=== PATIENT | male | born 1970 | race American Indian/Alaskan Native ===

== ENCOUNTER 2021-05-02 01:15 | Inpatient (IN) | payer MEDICARE ==
--- NOTE | 2021-05-02 07:39 | History and Physical Report ---
GP History & Physical - History of Present Illness Date of admission: 05/02/21 Date of Examination: 05/02/21 Reason for Admission: Danger to self, Failure of Outpatient Treatment Chief Complaint: suicidal attempt History of Present Illness: Jcarlos Breen is a 50 year old male with a history of depression and paranoid schizophrenia who was admitted on 1012 from [place], [place] for suicidal ideation and attempt via overdosing on pills. The patient was seen resting in bed, he was calm and cooperative. The patient reports that he stays depressed due to his comorbid health issues. The patient reports having intermittent issues with panic attacks and claustrophobic. He endorses auditory/visual hallucinations stating " voices saying give up because you're not going to get better, do what you have to do." The patient also states that " when my HIV kick in, I start itching I see bees and I loose my mind." The patient denies having any current suicidal /homicidal ideation. PAST PSYCHIATRIC HISTORY: Diagnoses: Depression, paranoid schizophrenia Suicide attempts or Self-harm behavior: Yes, via OD on pills Prior psychiatric hospitalizations: Yes Substance Abuse history: Denies Previous psychiatric medications tried: Xanax, Effexor, Vistaril Outpatient treatment: Yes- PAST MEDICAL HISTORY: Chronic back pain, HIV/AIDS, HTN, COPD, Gerd, DM, HEP A & Hep C, Gastritis, CHF Family Psychiatric History: None reported or documented SOCIAL HISTORY Marital Status:Single Living Arrangements: unknown Employment Status: Disabled Access to guns/weapons: Denies Education: 9th grade History of Abuse:Denies Legal History: Denies REVIEW OF SYSTEMS Constitutional: Negative for weight loss ENT: Negative for stridor Respiratory: Negative for cough or hemoptysis All other systems reviewed and are negative MENTAL STATUS EXAMINATION General Appearance and Behavior: Age appropriate, good hygiene, wearing appropriate clothes. Cooperation: Cooperative, calm Psychomotor Behavior: Psychomotor normal Mood: "ok" Affect and affective range: congruent with stated mood, tearful Thought Process: Goal directed Thought Content: Not suicidal Speech: Normal volume, Regular rate and rhythm, Suicidal Ideation: Denies Homicidal Ideation: Denies Hallucinations: Yes, Auditory and visual Delusions: None Impulse Control: Questionable Insight and Judgment: Limited insight, fair judgment Memory: unimpaired Attention: Distractible Orientation: alert and oriented Assessment and Plan (1) Paranoid Schizophrenia disorder Treatment Plan Patient admitted for inpatient psychiatric evaluation, medication adjustment and close monitoring The patient's behavior, mood, sleep and appetite will be closely monitored. Patient enrolled in individual and group therapeutic sessions and encouraged to attend. Patient provided with a safe and structured environment. Patient's physical health needs will be addressed by the Hospitalist. Hospitalist Consulted Labs including CBC, CMP, Lipid profile and Hemoglobin A1C levels ordered for baseline reference Social Assessment will be completed and the Post Closer will work with patient and family to ensure a suitable and safe disposition Medication adjustment will be made as clinically indicated Start Ativan 2mg IM Q 4 hours PRN for agitation Continue home medications Usual Wellness Jehovah'S Witness/Preservation: - Start Trazodone 50 mg po QHS & 50 mg po QHS PRN between 10 PM & 2 AM for insomnia - Start Melatonin 5 mg po QHS to promote circadian rhythm The patient agreed on the treatment plan, understood the risk, benefit, alternative treatment, potential consequence of no treatment, and gave informed consent. Estimated days: 6 Post hospital care: primary care provider, psychiatric provider Case staffed with Dr. Kelley Legal Status: Voluntary Reaction to Hospitalization: Accepting Medications and Allergies Medications and Allergies Allergies Allergy/AdvReac Type Severity Reaction Status Date / Time codeine AdvReac Unknown Verified 04/09/16 10:34 Home Medications Medication Instructions Recorded Confirmed Last Taken Type Aldactone 25 mg PO BID 05/02/21 05/02/21 Unknown History Bictegrav/Emtricit/Tenofov Ala 1 tab PO DAILY 05/02/21 05/02/21 Unknown History [Biktarvy 50-200-25 mg (Nf)] Losartan [Cozaar] 50 mg PO DAILY 05/02/21 05/02/21 Unknown History Oxycodone HCl/Acetaminophen 1 each PO Q6HR PRN 05/02/21 05/02/21 05/01/21 23:17 History [Percocet 10/325 mg] Pantoprazole [Protonix TAB] 40 mg PO QDAY 05/02/21 05/02/21 Unknown History Venlafaxine HCl [Effexor Xr] 150 mg PO DAILY 05/02/21 05/02/21 Unknown History metFORMIN [Glucophage] 500 mg PO BID 05/02/21 05/02/21 Unknown History Physician Certification - Certification Statement Physician Certification Statement: This is an acknowledgement statement that JCARLOS BREEN III is a 50 year old M who requires inpatient psychiatric admission for treatment which could reasonably be expected to improve the patient's condition for Estimated period of time patient will need to remain in the hospital: [ ] Plan for post-hospital care: [ ]
[2021-05-02] MEDS ORDERED: LORazepam 2 MG/ML VIAL IV PRN (08:30)
[2021-05-02] MEDS ORDERED: BUDESONIDE 0.25 MG/2 ML NEBU IH SCH (08:45)
[2021-05-02] MEDS ORDERED: BUDESONIDE 0.5 MG, ARFORMOTEROL NEBU 15 MCG IH SCH (09:00)
[2021-05-02] MEDS ORDERED: oxyCODONE /ACETAMINOPHEN 5-325MG TAB PO PRN (10:00)
[2021-05-02] MEDS ORDERED: NON-FORMULARY EACH (Bictegrav/Emtricit/Tenofov Ala 1 EACH Tablet) PO SCH (10:00)
[2021-05-02] MEDS ORDERED: ALDACTONE PO SCH (10:00)
[2021-05-02] MEDS ORDERED: NON-FORMULARY EACH (Venlafaxine Hcl [Effexor Xr] 150 MG Cap.Er.24h) PO SCH (10:00)
[2021-05-02] MEDS: VENLAFAXINE XR 75 MG CAP PO SCH (10:43)
[2021-05-02] MEDS: metFORMIN 500 MG TAB PO SCH ×2 (10:47→17:45)
[2021-05-02] MEDS: PANTOPRAZOLE 40 MG TAB PO SCH (10:47)
[2021-05-02] MEDS ORDERED: NON-FORMULARY EACH (Oxycodone Hcl/Acetaminophen [Percocet 10/325 Mg] 1 EACH Tablet) PO PRN (10:54)
[2021-05-02] MEDS: LOSARTAN 50 MG TAB PO SCH (10:54)
[2021-05-02] MEDS: SPIRONOLACTONE 25 MG TAB PO SCH ×2 (10:54→21:17)
[2021-05-02 12:19] LABS: Alanine Aminotransferase 21 units/L (7-56); Albumin 3.9 g/dL (3.9-5); BUN/Creatinine Ratio 10; Blood Urea Nitrogen 9 mg/dL (9-20); Chol/HDL Ratio 6.47 %; HDL Cholesterol 40 mg/dL (40-59); Hemolysis Index 10; LDL Cholesterol,Direct 197 mg/dL (50-130)
[2021-05-02] MEDS: BICTEGRAV/EMTRICIT/TENOFOV ALA (NF) TAB PO SCH (12:32)
[2021-05-02 12:38] LABS: Hematocrit 38.3 % (35.5-45.6); Hemoglobin 12.8 gm/dl (11.8-15.2); Lymphocytes # (Auto) 1.9 K/mm3 (1.2-5.4); Lymphocytes % (Auto) 14.2 % (13.4-35.0); Mean Corpuscular HGB Conc 34 % (32-34); Mean Corpuscular Volume 86 fl (84-94); Monocytes # (Auto) 1.2 K/mm3 (0.0-0.8); Monocytes % (Auto) 8.9 % (0.0-7.3); Platelet Count 251 K/mm3 (140-440); Red Blood Count 4.44 M/mm3 (3.65-5.03); Red Cell Distribution Width 15.9 % (13.2-15.2)
[2021-05-02] MEDS: BUDESONIDE 0.5 MG/2 ML NEBU IH SCH (13:42)
[2021-05-02] MEDS: ARFORMOTEROL 15 MCG/2 ML NEBU IH SCH (13:43)
[2021-05-02 16:22] LABS: Hepatitis C Virus Antibody Non-Reactive (NonReactive)
[2021-05-02 16:27] LABS: Hepatitis B Surface Antigen Nonreactive (Negative)
[2021-05-02] MEDS: oxyCODONE 5 MG TAB PO PRN (18:28)
[2021-05-02] MEDS: oxyCODONE /ACETAMINOPHEN 5-325MG TAB PO PRN (18:28)
[2021-05-02] MEDS: traZODone 50 MG TAB PO SCH (21:17)
[2021-05-03] MEDS: oxyCODONE /ACETAMINOPHEN 5-325MG TAB PO PRN ×4 (01:04→23:44)
[2021-05-03] MEDS: oxyCODONE 5 MG TAB PO PRN ×4 (01:21→22:01)
--- NOTE | 2021-05-03 08:12 | Consultation ---
History of Present Illness - Reason for Consult Consult date: 05/03/21 Medical consult Requesting physician: BENJI MIXON - History of Present Illness 50-year-old male patient was admitted to [facility] psych unit with history of suicidal attempt, patient has multiple medical problems Hospitalist services were consulted for medical consult and medical management Medications and Allergies Allergies Allergy/AdvReac Type Severity Reaction Status Date / Time codeine AdvReac Unknown Verified 04/09/16 10:34 Home Medications Medication Instructions Recorded Confirmed Last Taken Type Aldactone 25 mg PO BID 05/02/21 05/02/21 Unknown History Bictegrav/Emtricit/Tenofov Ala 1 tab PO DAILY 05/02/21 05/02/21 Unknown History [Biktarvy 50-200-25 mg (Nf)] Losartan [Cozaar] 50 mg PO DAILY 05/02/21 05/02/21 Unknown History Oxycodone HCl/Acetaminophen 1 each PO Q6HR PRN 05/02/21 05/02/21 05/01/21 23:17 History [Percocet 10/325 mg] Pantoprazole [Protonix TAB] 40 mg PO QDAY 05/02/21 05/02/21 Unknown History Venlafaxine HCl [Effexor Xr] 150 mg PO DAILY 05/02/21 05/02/21 Unknown History metFORMIN [Glucophage] 500 mg PO BID 05/02/21 05/02/21 Unknown History Active Meds: Active Medications Arformoterol Tartrate (Arformoterol 15 Mcg/2 Ml Nebu) 15 mcg IH Q12HRT [facility] Last Admin: 05/02/21 13:43 Dose: 15 mcg Documented by: Budesonide (Budesonide 0.5 Mg/2 Ml Nebu) 0.5 mg IH Q12HRT [facility] Last Admin: 05/02/21 13:42 Dose: 0.5 mg Documented by: Hydroxyzine Pamoate (Hydroxyzine Pamoate 50 Mg Cap) 50 mg PO Q6H PRN PRN Reason: Anxiety Last Admin: 05/02/21 18:46 Dose: 50 mg Documented by: Lorazepam (Lorazepam 2 Mg/Ml Vial) 2 mg IV Q4H PRN PRN Reason: Agitation Losartan Potassium (Losartan 50 Mg Tab) 50 mg PO DAILY [facility] Last Admin: 05/02/21 10:54 Dose: 50 mg Documented by: Metformin HCl (Metformin 500 Mg Tab) 500 mg PO BIDDIAB [facility] Last Admin: 05/02/21 17:45 Dose: 500 mg Documented by: Oxycodone HCl (Oxycodone 5 Mg Tab) 5 mg PO Q6H PRN PRN Reason: Pain, Moderate (4-6) Last Admin: 05/03/21 01:21 Dose: 5 mg Documented by: Oxycodone/Acetaminophen (Oxycodone /Acetaminophen 5-325mg Tab) 1 tab PO Q6H PRN PRN Reason: Pain, Moderate (4-6) Last Admin: 05/03/21 01:04 Dose: 1 tab Documented by: Pantoprazole Sodium (Pantoprazole 40 Mg Tab) 40 mg PO QDAC [facility] Last Admin: 05/02/21 10:47 Dose: 40 mg Documented by: Spironolactone (Spironolactone 25 Mg Tab) 25 mg PO BID [facility] Last Admin: 05/02/21 21:17 Dose: 25 mg Documented by: Trazodone HCl (Trazodone 50 Mg Tab) 50 mg PO QHS [facility] Last Admin: 05/02/21 21:17 Dose: 50 mg Documented by: Venlafaxine HCl (Venlafaxine Xr 75 Mg Cap) 150 mg PO QDAY [facility] Last Admin: 05/02/21 10:43 Dose: 150 mg Documented by: Exam - Constitutional Vitals: Temp Pulse Resp BP Pulse Ox 98.2 F 76 18 138/73 100 05/02/21 20:15 05/02/21 21:17 05/03/21 01:21 05/02/21 21:17 05/02/21 20:15 Results - Labs CBC & Chem 7: 05/02/21 10:54 05/02/21 10:54 Labs: Abnormal lab results 05/02/21 05/02/21 05/02/21 Range/Units 10:54 10:54 10:54 WBC 13.0 H (4.5-11.0) K/mm3 RDW 15.9 H (13.2-15.2) % [place] % (Auto) 8.9 H (0.0-7.3) % [place] # (Auto) 1.2 H (0.0-0.8) K/mm3 Seg Neutrophils % 76.9 H (40.0-70.0) % Seg Neutrophils # 10.0 H (1.8-7.7) K/mm3 Carbon Dioxide 20 L (22-30) mmol/L Glucose 321 H (75-100) mg/dL POC Glucose (70-105) mg/dL Hemoglobin A1c 6.8 H (4-6) % Cholesterol 259 H (50-199) mg/dL LDL Cholesterol Direct 197 H (50-130) mg/dL TSH (0.270-4.200) mlU/mL 05/02/21 05/02/21 05/02/21 Range/Units 10:54 16:52 19:57 WBC (4.5-11.0) K/mm3 RDW (13.2-15.2) % [place] % (Auto) (0.0-7.3) % [place] # (Auto) (0.0-0.8) K/mm3 Seg Neutrophils % (40.0-70.0) % Seg Neutrophils # (1.8-7.7) K/mm3 Carbon Dioxide (22-30) mmol/L Glucose (75-100) mg/dL POC Glucose 223 H 267 H (70-105) mg/dL Hemoglobin A1c (4-6) % Cholesterol (50-199) mg/dL LDL Cholesterol Direct (50-130) mg/dL TSH 0.246 L (0.270-4.200) mlU/mL 05/03/21 Range/Units 06:03 WBC (4.5-11.0) K/mm3 RDW (13.2-15.2) % [place] % (Auto) (0.0-7.3) % [place] # (Auto) (0.0-0.8) K/mm3 Seg Neutrophils % (40.0-70.0) % Seg Neutrophils # (1.8-7.7) K/mm3 Carbon Dioxide (22-30) mmol/L Glucose (75-100) mg/dL POC Glucose 137 H (70-105) mg/dL Hemoglobin A1c (4-6) % Cholesterol (50-199) mg/dL LDL Cholesterol Direct (50-130) mg/dL TSH (0.270-4.200) mlU/mL
--- NOTE | 2021-05-03 08:14 | Consultation ---
History of Present Illness - Reason for Consult Consult date: 05/02/21 Medical management Requesting physician: BENJI MIXON - History of Present Illness History of Present Illness: Jcarlos Mohr is a 50 year old male with a history of depression and paranoid schizophrenia who was admitted on 1012 from [place], [place] for suicidal ideation and attempt via overdosing on pills. The patient was seen resting in bed, he was calm and cooperative. The patient reports that he stays depressed due to his comorbid health issues. The patient reports having intermittent issues with panic attacks and claustrophobic. He endorses auditory/visual hallucinations stating " voices saying give up because you're not going to get better, do what you have to do." The patient also states that " when my HIV kick in, I start itching I see bees and I loose my mind." The patient denies having any current suicidal /homicidal ideation. PAST MEDICAL HISTORY: Chronic back pain, HIV/AIDS, HTN, COPD, Gerd, DM, Hep C, Gastritis, CHF PAST PSYCHIATRIC HISTORY: Diagnoses: Depression, paranoid schizophrenia Suicide attempts or Self-harm behavior: Yes, via OD on pills Prior psychiatric hospitalizations: Yes Substance Abuse history: Denies Previous psychiatric medications tried: Xanax, Effexor, Vistaril Outpatient treatment: Yes- Family Psychiatric History: None reported or documented SOCIAL HISTORY Marital Status:Single Living Arrangements: unknown Employment Status: Disabled Access to guns/weapons: Denies Education: 9th grade History of Abuse:Denies Legal History: Denies REVIEW OF SYSTEMS Constitutional: Negative for weight loss ENT: Negative for stridor Respiratory: Negative for cough or hemoptysis All other systems reviewed and are negative Medications and Allergies Allergies Allergy/AdvReac Type Severity Reaction Status Date / Time codeine AdvReac Unknown Verified 04/09/16 10:34 Home Medications Medication Instructions Recorded Confirmed Last Taken Type Aldactone 25 mg PO BID 05/02/21 05/02/21 Unknown History Bictegrav/Emtricit/Tenofov Ala 1 tab PO DAILY 05/02/21 05/02/21 Unknown History [Biktarvy 50-200-25 mg (Nf)] Losartan [Cozaar] 50 mg PO DAILY 05/02/21 05/02/21 Unknown History Oxycodone HCl/Acetaminophen 1 each PO Q6HR PRN 05/02/21 05/02/21 05/01/21 23:17 History [Percocet 10/325 mg] Pantoprazole [Protonix TAB] 40 mg PO QDAY 05/02/21 05/02/21 Unknown History Venlafaxine HCl [Effexor Xr] 150 mg PO DAILY 05/02/21 05/02/21 Unknown History metFORMIN [Glucophage] 500 mg PO BID 05/02/21 05/02/21 Unknown History Active Meds: Active Medications Arformoterol Tartrate (Arformoterol 15 Mcg/2 Ml Nebu) 15 mcg IH Q12HRT [facility] Last Admin: 05/02/21 13:43 Dose: 15 mcg Documented by: Budesonide (Budesonide 0.5 Mg/2 Ml Nebu) 0.5 mg IH Q12HRT [facility] Last Admin: 05/02/21 13:42 Dose: 0.5 mg Documented by: Hydroxyzine Pamoate (Hydroxyzine Pamoate 50 Mg Cap) 50 mg PO Q6H PRN PRN Reason: Anxiety Last Admin: 05/02/21 18:46 Dose: 50 mg Documented by: Lorazepam (Lorazepam 2 Mg/Ml Vial) 2 mg IV Q4H PRN PRN Reason: Agitation Losartan Potassium (Losartan 50 Mg Tab) 50 mg PO DAILY [facility] Last Admin: 05/02/21 10:54 Dose: 50 mg Documented by: Metformin HCl (Metformin 500 Mg Tab) 500 mg PO BIDDIAB [facility] Last Admin: 05/02/21 17:45 Dose: 500 mg Documented by: Oxycodone HCl (Oxycodone 5 Mg Tab) 5 mg PO Q6H PRN PRN Reason: Pain, Moderate (4-6) Last Admin: 05/03/21 01:21 Dose: 5 mg Documented by: Oxycodone/Acetaminophen (Oxycodone /Acetaminophen 5-325mg Tab) 1 tab PO Q6H PRN PRN Reason: Pain, Moderate (4-6) Last Admin: 05/03/21 01:04 Dose: 1 tab Documented by: Pantoprazole Sodium (Pantoprazole 40 Mg Tab) 40 mg PO QDAC [facility] Last Admin: 05/02/21 10:47 Dose: 40 mg Documented by: Spironolactone (Spironolactone 25 Mg Tab) 25 mg PO BID [facility] Last Admin: 05/02/21 21:17 Dose: 25 mg Documented by: Trazodone HCl (Trazodone 50 Mg Tab) 50 mg PO QHS [facility] Last Admin: 05/02/21 21:17 Dose: 50 mg Documented by: Venlafaxine HCl (Venlafaxine Xr 75 Mg Cap) 150 mg PO QDAY [facility] Last Admin: 05/02/21 10:43 Dose: 150 mg Documented by: Review of Systems All systems: negative Exam - Constitutional Vitals: Temp Pulse Resp BP Pulse Ox 98.2 F 76 18 138/73 100 05/02/21 20:15 05/02/21 21:17 05/03/21 01:21 05/02/21 21:17 05/02/21 20:15 General appearance: Present: no acute distress, well-nourished - EENT Eyes: Present: PERRL ENT: hearing intact, clear oral mucosa - Neck Neck: Present: supple, normal ROM - Respiratory Respiratory effort: normal Respiratory: bilateral: CTA - Cardiovascular Heart rate: 78 Rhythm: regular Heart Sounds: Present: S1 & S2. Absent: rub, click - Extremities Extremities: pulses symmetrical, No edema Peripheral Pulses: within normal limits - Abdominal General gastrointestinal: Present: soft, non-tender, non-distended, normal bowel sounds Male genitourinary: Present: normal - Integumentary Integumentary: Present: clear, warm, dry - Musculoskeletal Musculoskeletal: gait normal, strength equal bilaterally - Psychiatric Psychiatric: appropriate mood/affect, intact judgment & insight - Neurologic Neurologic: CNII-XII intact, moves all extremities Results - Labs CBC & Chem 7: 05/02/21 10:54 05/02/21 10:54 Labs: Abnormal lab results 05/02/21 05/02/21 05/02/21 Range/Units 10:54 10:54 10:54 WBC 13.0 H (4.5-11.0) K/mm3 RDW 15.9 H (13.2-15.2) % [place] % (Auto) 8.9 H (0.0-7.3) % [place] # (Auto) 1.2 H (0.0-0.8) K/mm3 Seg Neutrophils % 76.9 H (40.0-70.0) % Seg Neutrophils # 10.0 H (1.8-7.7) K/mm3 Carbon Dioxide 20 L (22-30) mmol/L Glucose 321 H (75-100) mg/dL POC Glucose (70-105) mg/dL Hemoglobin A1c 6.8 H (4-6) % Cholesterol 259 H (50-199) mg/dL LDL Cholesterol Direct 197 H (50-130) mg/dL TSH (0.270-4.200) mlU/mL 05/02/21 05/02/21 05/02/21 Range/Units 10:54 16:52 19:57 WBC (4.5-11.0) K/mm3 RDW (13.2-15.2) % [place] % (Auto) (0.0-7.3) % [place] # (Auto) (0.0-0.8) K/mm3 Seg Neutrophils % (40.0-70.0) % Seg Neutrophils # (1.8-7.7) K/mm3 Carbon Dioxide (22-30) mmol/L Glucose (75-100) mg/dL POC Glucose 223 H 267 H (70-105) mg/dL Hemoglobin A1c (4-6) % Cholesterol (50-199) mg/dL LDL Cholesterol Direct (50-130) mg/dL TSH 0.246 L (0.270-4.200) mlU/mL 05/03/21 Range/Units 06:03 WBC (4.5-11.0) K/mm3 RDW (13.2-15.2) % [place] % (Auto) (0.0-7.3) % [place] # (Auto) (0.0-0.8) K/mm3 Seg Neutrophils % (40.0-70.0) % Seg Neutrophils # (1.8-7.7) K/mm3 Carbon Dioxide (22-30) mmol/L Glucose (75-100) mg/dL POC Glucose 137 H (70-105) mg/dL Hemoglobin A1c (4-6) % Cholesterol (50-199) mg/dL LDL Cholesterol Direct (50-130) mg/dL TSH (0.270-4.200) mlU/mL Assessment and Plan - Patient Problems (1) HTN (hypertension) Current Visit: Yes Status: Chronic Qualifiers: Hypertension type: primary hypertension Qualified Code(s): I10 - Essential (primary) hypertension Plan to address problem: Continue antihypertensives and adjust medications (2) T2DM (type 2 diabetes mellitus) Current Visit: Yes Status: Chronic Qualifiers: Diabetes mellitus roasterman insulin use: without roasterman use Plan to address problem: Continue Metformin and coverage Hemoglobin A1c is reasonable (3) HIV (human immunodeficiency virus infection) Current Visit: Yes Status: Chronic Qualifiers: HIV symptom status: unspecified Qualified Code(s): B20 - Human immunodeficiency virus [HIV] disease Plan to address problem: Continue antiretrovirals (4) GERD (gastroesophageal reflux disease) Current Visit: Yes Status: Chronic Qualifiers: Esophagitis presence: without esophagitis Qualified Code(s): K21.9 - Gastro-esophageal reflux disease without esophagitis Plan to address problem: Continue Protonix (5) Low back pain Current Visit: Yes Status: Chronic Qualifiers: Chronicity: chronic Plan to address problem: Tramadol 50 mg twice a day as needed (6) COPD (chronic obstructive pulmonary disease) Current Visit: Yes Status: Chronic Qualifiers: COPD type: chronic bronchitis Plan to address problem: Albuterol MDI as needed (7) DVT prophylaxis Current Visit: Yes Status: Acute Plan to address problem: On heparin and GI prophylaxis
[2021-05-03] MEDS ORDERED: traMADol 50 MG TAB PO PRN (09:00)
--- NOTE | 2021-05-03 09:18 | Progress Note ---
Subjective Date of service: 05/03/21 Subjective Comment: The patient is in the hallway, he presents with anxiety, reports as 8/10. The The patient is stumbling and holding the rails while ambulating. He is complaining about his breakfast. The patient reports that " my medical conditions is killing me; the virus causes the itching. He continues to endorse suicidal ideation without a plan and AVHs he states " is caused by the virus." Start Zyprexa 5mg po daily REVIEW OF SYSTEMS Constitutional: Negative for weight loss ENT: Negative for stridor Respiratory: Negative for cough or hemoptysis All other systems reviewed and are negative MENTAL STATUS EXAMINATION General Appearance and Behavior: Age appropriate, good hygiene, wearing appropriate clothes. Cooperation: Cooperative, calm Psychomotor Behavior: Psychomotor normal Mood: "anxious" Affect and affective range: congruent with stated mood, tearful Thought Process: labile Thought Content: Suicidal Speech: Normal volume, Regular rate and rhythm, Suicidal Ideation: Yes Homicidal Ideation: Denies Hallucinations: Yes, Auditory and visual Delusions: None Impulse Control: Questionable Insight and Judgment: Limited insight, fair judgment Memory: unimpaired Attention: Distractible Orientation: alert and oriented Assessment and Plan (1) Paranoid Schizophrenia disorder Treatment Plan Patient admitted for inpatient psychiatric evaluation, medication adjustment and close monitoring The patient's behavior, mood, sleep and appetite will be closely monitored. Patient enrolled in individual and group therapeutic sessions and encouraged to attend. Patient provided with a safe and structured environment. Patient's physical health needs will be addressed by the Hospitalist. Hospitalist Consulted Labs including CBC, CMP, Lipid profile and Hemoglobin A1C levels ordered for baseline reference Social Assessment will be completed and the Product Handler will work with patient and family to ensure a suitable and safe disposition Medication adjustment will be made as clinically indicated Continue Ativan 2mg IM Q 4 hours PRN for agitation Start Zyprexa 5mg po daily Continue home medications Usual Wellness Yarsanism/Preservation: - Start Trazodone 50 mg po QHS & 50 mg po QHS PRN between 10 PM & 2 AM for insomnia - Start Melatonin 5 mg po QHS to promote circadian rhythm The patient agreed on the treatment plan, understood the risk, benefit, alternative treatment, potential consequence of no treatment, and gave informed consent. Estimated days: 5 Post hospital care: primary care provider, psychiatric provider Case staffed with Dr. Kelley Legal Status: Voluntary Reaction to Hospitalization: Accepting Medications and Allergies Medications and Allergies Allergies Allergy/AdvReac Type Severity Reaction Status Date / Time codeine AdvReac Unknown Verified 04/09/16 10:34 Home Medications Medication Instructions Recorded Confirmed Last Taken Type Aldactone 25 mg PO BID 05/02/21 05/02/21 Unknown History Bictegrav/Emtricit/Tenofov Ala 1 tab PO DAILY 05/02/21 05/02/21 Unknown History [Biktarvy 50-200-25 mg (Nf)] Losartan [Cozaar] 50 mg PO DAILY 05/02/21 05/02/21 Unknown History Oxycodone HCl/Acetaminophen 1 each PO Q6HR PRN 05/02/21 05/02/21 05/01/21 23:17 History [Percocet 10/325 mg] Pantoprazole [Protonix TAB] 40 mg PO QDAY 05/02/21 05/02/21 Unknown History Venlafaxine HCl [Effexor Xr] 150 mg PO DAILY 05/02/21 05/02/21 Unknown History metFORMIN [Glucophage] 500 mg PO BID 05/02/21 05/02/21 Unknown History Active Meds: Active Medications Arformoterol Tartrate (Arformoterol 15 Mcg/2 Ml Nebu) 15 mcg IH Q12HRT [facility] Last Admin: 05/02/21 13:43 Dose: 15 mcg Documented by: Atorvastatin Calcium (Atorvastatin 20 Mg Tab) 20 mg PO QHS YANIV Budesonide (Budesonide 0.5 Mg/2 Ml Nebu) 0.5 mg IH Q12HRT [facility] Last Admin: 05/02/21 13:42 Dose: 0.5 mg Documented by: Hydroxyzine Pamoate (Hydroxyzine Pamoate 50 Mg Cap) 50 mg PO Q6H PRN PRN Reason: Anxiety Last Admin: 05/02/21 18:46 Dose: 50 mg Documented by: Insulin Human Lispro (Insulin Lispro 100 Unit/Ml) 0 unit SUB-Q ACHS [facility]; Protocol Lorazepam (Lorazepam 2 Mg/Ml Vial) 2 mg IV Q4H PRN PRN Reason: Agitation Losartan Potassium (Losartan 50 Mg Tab) 50 mg PO DAILY [facility] Last Admin: 05/02/21 10:54 Dose: 50 mg Documented by: Metformin HCl (Metformin 500 Mg Tab) 500 mg PO BIDDIAB [facility] Last Admin: 05/02/21 17:45 Dose: 500 mg Documented by: Oxycodone HCl (Oxycodone 5 Mg Tab) 5 mg PO Q6H PRN PRN Reason: Pain, Moderate (4-6) Last Admin: 05/03/21 01:21 Dose: 5 mg Documented by: Oxycodone/Acetaminophen (Oxycodone /Acetaminophen 5-325mg Tab) 1 tab PO Q6H PRN PRN Reason: Pain, Moderate (4-6) Last Admin: 05/03/21 01:04 Dose: 1 tab Documented by: Pantoprazole Sodium (Pantoprazole 40 Mg Tab) 40 mg PO QDAC [facility] Last Admin: 05/02/21 10:47 Dose: 40 mg Documented by: Spironolactone (Spironolactone 25 Mg Tab) 25 mg PO BID [facility] Last Admin: 05/02/21 21:17 Dose: 25 mg Documented by: Tramadol HCl (Tramadol 50 Mg Tab) 50 mg PO BID PRN PRN Reason: Pain, Moderate (4-6) Trazodone HCl (Trazodone 50 Mg Tab) 50 mg PO QHS [facility] Last Admin: 05/02/21 21:17 Dose: 50 mg Documented by: Venlafaxine HCl (Venlafaxine Xr 75 Mg Cap) 150 mg PO QDAY [facility] Last Admin: 05/02/21 10:43 Dose: 150 mg Documented by: Results - Results Labs/Vitals: Laboratory Last Values WBC 13.0 K/mm3 (4.5-11.0) H 05/02/21 10:54 RBC 4.44 M/mm3 (3.65-5.03) 05/02/21 10:54 Hgb 12.8 gm/dl (11.8-15.2) 05/02/21 10:54 Hct 38.3 % (35.5-45.6) 05/02/21 10:54 MCV 86 fl (84-94) 05/02/21 10:54 MCH 29 pg (28-32) 05/02/21 10:54 MCHC 34 % (32-34) 05/02/21 10:54 RDW 15.9 % (13.2-15.2) H 05/02/21 10:54 Plt Count 251 K/mm3 (140-440) 05/02/21 10:54 Lymph % (Auto) 14.2 % (13.4-35.0) 05/02/21 10:54 [place] % (Auto) 8.9 % (0.0-7.3) H 05/02/21 10:54 Eos % (Auto) 0.0 % (0.0-4.3) 05/02/21 10:54 Baso % (Auto) 0.0 % (0.0-1.8) 05/02/21 10:54 Lymph # (Auto) 1.9 K/mm3 (1.2-5.4) 05/02/21 10:54 [place] # (Auto) 1.2 K/mm3 (0.0-0.8) H 05/02/21 10:54 Eos # (Auto) 0.0 K/mm3 (0.0-0.4) 05/02/21 10:54 Baso # (Auto) 0.0 K/mm3 (0.0-0.1) 05/02/21 10:54 Seg Neutrophils % 76.9 % (40.0-70.0) H 05/02/21 10:54 Seg Neutrophils # 10.0 K/mm3 (1.8-7.7) H 05/02/21 10:54 Sodium 137 mmol/L (137-145) 05/02/21 10:54 Potassium 4.7 mmol/L (3.6-5.0) 05/02/21 10:54 Chloride 103.0 mmol/L (98-107) 05/02/21 10:54 Carbon Dioxide 20 mmol/L (22-30) L 05/02/21 10:54 Anion Gap 19 mmol/L 05/02/21 10:54 BUN 9 mg/dL (9-20) 05/02/21 10:54 Creatinine 0.9 mg/dL (0.8-1.3) 05/02/21 10:54 Estimated GFR > 60 ml/min 05/02/21 10:54 BUN/Creatinine Ratio 10 % 05/02/21 10:54 Glucose 321 mg/dL (75-100) H 05/02/21 10:54 POC Glucose 137 mg/dL (70-105) H 05/03/21 06:03 Hemoglobin A1c 6.8 % (4-6) H 05/02/21 10:54 Calcium 10.0 mg/dL (8.4-10.2) 05/02/21 10:54 Total Bilirubin 0.20 mg/dL (0.1-1.2) 05/02/21 10:54 AST 13 units/L (5-40) 05/02/21 10:54 ALT 21 units/L (7-56) 05/02/21 10:54 Alkaline Phosphatase 61 units/L (35-129) 05/02/21 10:54 Total Protein 6.6 g/dL (6.3-8.2) 05/02/21 10:54 Albumin 3.9 g/dL (3.9-5) 05/02/21 10:54 Albumin/Globulin Ratio 1.4 % 05/02/21 10:54 Triglycerides 105 mg/dL (2-149) 05/02/21 10:54 Cholesterol 259 mg/dL (50-199) H 05/02/21 10:54 LDL Cholesterol Direct 197 mg/dL (50-130) H 05/02/21 10:54 HDL Cholesterol 40 mg/dL (40-59) 05/02/21 10:54 Cholesterol/HDL Ratio 6.47 % 05/02/21 10:54 TSH 0.246 mlU/mL (0.270-4.200) L 05/02/21 10:54 Hepatitis A IgM Ab Non-reactive (NonReactive) 05/02/21 10:54 Hep Bs Antigen Nonreactive (Negative) 05/02/21 10:54 Hep B Core IgM Ab Non-reactive (NonReactive) 05/02/21 10:54 Hepatitis C Antibody Non-reactive (NonReactive) 05/02/21 10:54 Last Vital Signs Temp 97.9 F 05/03/21 09:05 Pulse 67 05/03/21 09:05 Resp 20 05/03/21 09:05 BP 120/72 05/03/21 09:05 Pulse Ox 93 05/03/21 09:05
[2021-05-03] MEDS: LOSARTAN 50 MG TAB PO SCH (09:31)
[2021-05-03] MEDS: VENLAFAXINE XR 75 MG CAP PO SCH (09:31)
[2021-05-03] MEDS: BICTEGRAV/EMTRICIT/TENOFOV ALA (NF) TAB PO SCH (09:31)
[2021-05-03] MEDS: metFORMIN 500 MG TAB PO SCH ×2 (09:31→16:45)
[2021-05-03] MEDS: PANTOPRAZOLE 40 MG TAB PO SCH (09:32)
[2021-05-03] MEDS: SPIRONOLACTONE 25 MG TAB PO SCH ×2 (09:32→21:27)
[2021-05-03] MEDS: INSULIN LISPRO 100 UNIT/ML SUB-Q SCH ×3 (12:12→21:31)
[2021-05-03] MEDS: traZODone 50 MG TAB PO SCH (21:27)
[2021-05-04] MEDS: oxyCODONE /ACETAMINOPHEN 5-325MG TAB PO PRN ×3 (06:12→21:15)
[2021-05-04] MEDS: oxyCODONE 5 MG TAB PO PRN ×2 (06:13→21:16)
[2021-05-04] MEDS: SPIRONOLACTONE 25 MG TAB PO SCH ×2 (09:40→21:16)
[2021-05-04] MEDS: VENLAFAXINE XR 75 MG CAP PO SCH (09:40)
[2021-05-04] MEDS: metFORMIN 500 MG TAB PO SCH ×2 (09:45→19:00)
[2021-05-04] MEDS: PANTOPRAZOLE 40 MG TAB PO SCH (09:45)
--- NOTE | 2021-05-04 10:27 | Progress Note ---
Subjective Date of service: 05/04/21 Principal diagnosis: Schizophrenia Subjective Comment: The patient was seen today. His affect is flat. He is slightly tearful. He says he feels stressed and very depressed. The patient endorses suicidal thoughts.. He denies a plan, but states voices are telling him "do what you gotta do to end it. You're not going to get better." REVIEW OF SYSTEMS Constitutional: Negative for weight loss ENT: Negative for stridor Respiratory: Negative for cough or hemoptysis All other systems reviewed and are negative MENTAL STATUS EXAMINATION General Appearance and Behavior: Age appropriate, good hygiene, wearing appropriate clothes. Cooperation: Cooperative, calm Psychomotor Behavior: Psychomotor normal Mood: depressed and stressed Affect and affective range: congruent with stated mood, tearful Thought Process: labile Thought Content: Suicidal Speech: Normal volume, Regular rate and rhythm, Suicidal Ideation: Yes Homicidal Ideation: Denies Hallucinations: Yes, Auditory Delusions: None Impulse Control: Questionable Insight and Judgment: Limited insight, fair judgment Memory: unimpaired Attention: Distractible Orientation: alert and oriented Assessment and Plan (1) Paranoid Schizophrenia disorder Treatment Plan Patient admitted for inpatient psychiatric evaluation, medication adjustment and close monitoring The patient's behavior, mood, sleep and appetite will be closely monitored. Patient enrolled in individual and group therapeutic sessions and encouraged to attend. Patient provided with a safe and structured environment. Patient's physical health needs will be addressed by the Hospitalist. Hospitalist Consulted Labs including CBC, CMP, Lipid profile and Hemoglobin A1C levels ordered for david hendrickson Social Assessment will be completed and the Wood Heel Back Liner will work with patient and family to ensure a suitable and safe disposition Medication adjustment will be made as clinically indicated Increase Olanzapine 10mg po daily Usual Wellness Uatsdin/Preservation: - Start Trazodone 50 mg po QHS & 50 mg po QHS PRN between 10 PM & 2 AM for insomnia - Start Melatonin 5 mg po QHS to promote circadian rhythm The patient agreed on the treatment plan, understood the risk, benefit, alternative treatment, potential consequence of no treatment, and gave informed consent. Estimated days: 5 Post hospital care: primary care provider, psychiatric provider Case staffed with Dr. Kelley Medications and Allergies Allergies Allergy/AdvReac Type Severity Reaction Status Date / Time codeine AdvReac Unknown Verified 04/09/16 10:34 Home Medications Medication Instructions Recorded Confirmed Last Taken Type Aldactone 25 mg PO BID 05/02/21 05/02/21 Unknown History Bictegrav/Emtricit/Tenofov Ala 1 tab PO DAILY 05/02/21 05/02/21 Unknown History [Biktarvy 50-200-25 mg (Nf)] Losartan [Cozaar] 50 mg PO DAILY 05/02/21 05/02/21 Unknown History Oxycodone HCl/Acetaminophen 1 each PO Q6HR PRN 05/02/21 05/02/21 05/01/21 23:17 History [Percocet 10/325 mg] Pantoprazole [Protonix TAB] 40 mg PO QDAY 05/02/21 05/02/21 Unknown History Venlafaxine HCl [Effexor Xr] 150 mg PO DAILY 05/02/21 05/02/21 Unknown History metFORMIN [Glucophage] 500 mg PO BID 05/02/21 05/02/21 Unknown History Active Meds: Active Medications Arformoterol Tartrate (Arformoterol 15 Mcg/2 Ml Nebu) 15 mcg IH Q12HRT [facility] Last Admin: 05/02/21 13:43 Dose: 15 mcg Documented by: Atorvastatin Calcium (Atorvastatin 20 Mg Tab) 20 mg PO QHS [facility] Last Admin: 05/03/21 21:28 Dose: 20 mg Documented by: Budesonide (Budesonide 0.5 Mg/2 Ml Nebu) 0.5 mg IH Q12HRT [facility] Last Admin: 05/02/21 13:42 Dose: 0.5 mg Documented by: Hydroxyzine Pamoate (Hydroxyzine Pamoate 50 Mg Cap) 50 mg PO Q6H PRN PRN Reason: Anxiety Last Admin: 05/02/21 18:46 Dose: 50 mg Documented by: Insulin Human Lispro (Insulin Lispro 100 Unit/Ml) 0 unit SUB-Q ACHS [facility]; Protocol Last Admin: 05/03/21 21:31 Dose: Not Given Documented by: Lorazepam (Lorazepam 2 Mg/Ml Vial) 2 mg IV Q4H PRN PRN Reason: Agitation Losartan Potassium (Losartan 50 Mg Tab) 50 mg PO DAILY [facility] Last Admin: 05/03/21 09:31 Dose: 50 mg Documented by: Metformin HCl (Metformin 500 Mg Tab) 500 mg PO BIDDIAB [facility] Last Admin: 05/04/21 09:45 Dose: 500 mg Documented by: Olanzapine (Olanzapine 5 Mg Tab) 5 mg PO QDAY [facility] Last Admin: 05/04/21 09:45 Dose: 5 mg Documented by: Oxycodone HCl (Oxycodone 5 Mg Tab) 5 mg PO Q6H PRN PRN Reason: Pain, Moderate (4-6) Last Admin: 05/04/21 06:13 Dose: 5 mg Documented by: Oxycodone/Acetaminophen (Oxycodone /Acetaminophen 5-325mg Tab) 1 tab PO Q6H PRN PRN Reason: Pain, Moderate (4-6) Last Admin: 05/04/21 06:12 Dose: 1 tab Documented by: Pantoprazole Sodium (Pantoprazole 40 Mg Tab) 40 mg PO QDAC [facility] Last Admin: 05/04/21 09:45 Dose: 40 mg Documented by: Spironolactone (Spironolactone 25 Mg Tab) 25 mg PO BID [facility] Last Admin: 05/04/21 09:40 Dose: 25 mg Documented by: Tramadol HCl (Tramadol 50 Mg Tab) 50 mg PO BID PRN PRN Reason: Pain, Moderate (4-6) Trazodone HCl (Trazodone 50 Mg Tab) 50 mg PO QHS [facility] Last Admin: 05/03/21 21:27 Dose: 50 mg Documented by: Venlafaxine HCl (Venlafaxine Xr 75 Mg Cap) 150 mg PO QDAY [facility] Last Admin: 05/04/21 09:40 Dose: 150 mg Documented by: Results - Results Labs/Vitals: Laboratory Last Values WBC 13.0 K/mm3 (4.5-11.0) H 05/02/21 10:54 RBC 4.44 M/mm3 (3.65-5.03) 05/02/21 10:54 Hgb 12.8 gm/dl (11.8-15.2) 05/02/21 10:54 Hct 38.3 % (35.5-45.6) 05/02/21 10:54 MCV 86 fl (84-94) 05/02/21 10:54 MCH 29 pg (28-32) 05/02/21 10:54 MCHC 34 % (32-34) 05/02/21 10:54 RDW 15.9 % (13.2-15.2) H 05/02/21 10:54 Plt Count 251 K/mm3 (140-440) 05/02/21 10:54 Lymph % (Auto) 14.2 % (13.4-35.0) 05/02/21 10:54 [place] % (Auto) 8.9 % (0.0-7.3) H 05/02/21 10:54 Eos % (Auto) 0.0 % (0.0-4.3) 05/02/21 10:54 Baso % (Auto) 0.0 % (0.0-1.8) 05/02/21 10:54 Lymph # (Auto) 1.9 K/mm3 (1.2-5.4) 05/02/21 10:54 [place] # (Auto) 1.2 K/mm3 (0.0-0.8) H 05/02/21 10:54 Eos # (Auto) 0.0 K/mm3 (0.0-0.4) 05/02/21 10:54 Baso # (Auto) 0.0 K/mm3 (0.0-0.1) 05/02/21 10:54 Seg Neutrophils % 76.9 % (40.0-70.0) H 05/02/21 10:54 Seg Neutrophils # 10.0 K/mm3 (1.8-7.7) H 05/02/21 10:54 Sodium 137 mmol/L (137-145) 05/02/21 10:54 Potassium 4.7 mmol/L (3.6-5.0) 05/02/21 10:54 Chloride 103.0 mmol/L (98-107) 05/02/21 10:54 Carbon Dioxide 20 mmol/L (22-30) L 05/02/21 10:54 Anion Gap 19 mmol/L 05/02/21 10:54 BUN 9 mg/dL (9-20) 05/02/21 10:54 Creatinine 0.9 mg/dL (0.8-1.3) 05/02/21 10:54 Estimated GFR > 60 ml/min 05/02/21 10:54 BUN/Creatinine Ratio 10 % 05/02/21 10:54 Glucose 321 mg/dL (75-100) H 05/02/21 10:54 POC Glucose 93 mg/dL (70-105) 05/04/21 08:09 Hemoglobin A1c 6.8 % (4-6) H 05/02/21 10:54 Calcium 10.0 mg/dL (8.4-10.2) 05/02/21 10:54 Total Bilirubin 0.20 mg/dL (0.1-1.2) 05/02/21 10:54 AST 13 units/L (5-40) 05/02/21 10:54 ALT 21 units/L (7-56) 05/02/21 10:54 Alkaline Phosphatase 61 units/L (35-129) 05/02/21 10:54 Total Protein 6.6 g/dL (6.3-8.2) 05/02/21 10:54 Albumin 3.9 g/dL (3.9-5) 05/02/21 10:54 Albumin/Globulin Ratio 1.4 % 05/02/21 10:54 Triglycerides 105 mg/dL (2-149) 05/02/21 10:54 Cholesterol 259 mg/dL (50-199) H 05/02/21 10:54 LDL Cholesterol Direct 197 mg/dL (50-130) H 05/02/21 10:54 HDL Cholesterol 40 mg/dL (40-59) 05/02/21 10:54 Cholesterol/HDL Ratio 6.47 % 05/02/21 10:54 TSH 0.246 mlU/mL (0.270-4.200) L 05/02/21 10:54 Thyroxine (T4) 5.6 ug/dL (4.0-12.0) 05/03/21 14:36 Hepatitis A IgM Ab Non-reactive (NonReactive) 05/02/21 10:54 Hep Bs Antigen Nonreactive (Negative) 05/02/21 10:54 Hep B Core IgM Ab Non-reactive (NonReactive) 05/02/21 10:54 Hepatitis C Antibody Non-reactive (NonReactive) 05/02/21 10:54 Last Vital Signs Temp 98.7 F 05/03/21 19:36 Pulse 62 05/04/21 09:40 Resp 18 05/03/21 19:36 BP 118/59 05/04/21 09:40 Pulse Ox 97 05/03/21 19:36
[2021-05-04] MEDS: BICTEGRAV/EMTRICIT/TENOFOV ALA (NF) TAB PO SCH (10:31)
[2021-05-04] MEDS: LOSARTAN 50 MG TAB PO SCH (12:21)
[2021-05-04] MEDS: traZODone 50 MG TAB PO SCH (21:15)
[2021-05-05] MEDS: oxyCODONE 5 MG TAB PO PRN ×4 (04:39→23:50)
[2021-05-05] MEDS: oxyCODONE /ACETAMINOPHEN 5-325MG TAB PO PRN ×4 (04:39→23:49)
[2021-05-05] MEDS: INSULIN LISPRO 100 UNIT/ML SUB-Q SCH ×7 (07:55→21:06)
[2021-05-05] MEDS: PANTOPRAZOLE 40 MG TAB PO SCH (08:21)
[2021-05-05] MEDS: metFORMIN 500 MG TAB PO SCH ×2 (08:21→17:43)
--- NOTE | 2021-05-05 08:39 | Progress Note ---
Subjective Date of service: 05/05/21 Principal diagnosis: Schizophrenia Subjective Comment: The patient was seen today. He says he feels stressed. The patient says his "mind is messing with me." He endorses SI. He says most of it is due to being sick and in pain. He says his health is failing. The patient says he hears voices telling him to give up. REVIEW OF SYSTEMS Constitutional: Negative for weight loss ENT: Negative for stridor Respiratory: Negative for cough or hemoptysis All other systems reviewed and are negative MENTAL STATUS EXAMINATION General Appearance and Behavior: Age appropriate, good hygiene, wearing appropriate clothes. Cooperation: Cooperative, calm Psychomotor Behavior: Psychomotor normal Mood: depressed and stressed Affect and affective range: congruent with stated mood, tearful Thought Process: labile Thought Content: Suicidal Speech: Normal volume, Regular rate and rhythm, Suicidal Ideation: Yes Homicidal Ideation: Denies Hallucinations: Yes, Auditory Delusions: None Impulse Control: Questionable Insight and Judgment: Limited insight, fair judgment Memory: unimpaired Attention: Distractible Orientation: alert and oriented Assessment and Plan (1) Paranoid Schizophrenia disorder Treatment Plan Patient admitted for inpatient psychiatric evaluation, medication adjustment and close monitoring The patient's behavior, mood, sleep and appetite will be closely monitored. Patient enrolled in individual and group therapeutic sessions and encouraged to attend. Patient provided with a safe and structured environment. Patient's physical health needs will be addressed by the Hospitalist. Hospitalist Consulted Labs including CBC, CMP, Lipid profile and Hemoglobin A1C levels ordered for baseline reference Social Assessment will be completed and the Associate Professor Of Geography will work with patient and family to ensure a suitable and safe disposition Medication adjustment will be made as clinically indicated Increase Olanzapine 10mg po daily yesterday Usual Wellness Voodoo/Preservation: - Start Trazodone 50 mg po QHS & 50 mg po QHS PRN between 10 PM & 2 AM for insomnia - Start Melatonin 5 mg po QHS to promote circadian rhythm The patient agreed on the treatment plan, understood the risk, benefit, alternative treatment, potential consequence of no treatment, and gave informed consent. Estimated days: 5 Post hospital care: primary care provider, psychiatric provider Case staffed with Dr. Kelley Medications and Allergies Allergies Allergy/AdvReac Type Severity Reaction Status Date / Time codeine AdvReac Unknown Verified 04/09/16 10:34 Home Medications Medication Instructions Recorded Confirmed Last Taken Type Aldactone 25 mg PO BID 05/02/21 05/02/21 Unknown History Bictegrav/Emtricit/Tenofov Ala 1 tab PO DAILY 05/02/21 05/02/21 Unknown History [Biktarvy 50-200-25 mg (Nf)] Losartan [Cozaar] 50 mg PO DAILY 05/02/21 05/02/21 Unknown History Oxycodone HCl/Acetaminophen 1 each PO Q6HR PRN 05/02/21 05/02/21 05/01/21 23:17 History [Percocet 10/325 mg] Pantoprazole [Protonix TAB] 40 mg PO QDAY 05/02/21 05/02/21 Unknown History Venlafaxine HCl [Effexor Xr] 150 mg PO DAILY 05/02/21 05/02/21 Unknown History metFORMIN [Glucophage] 500 mg PO BID 05/02/21 05/02/21 Unknown History Active Meds: Active Medications Arformoterol Tartrate (Arformoterol 15 Mcg/2 Ml Nebu) 15 mcg IH Q12HRT [facility] Last Admin: 05/02/21 13:43 Dose: 15 mcg Documented by: Atorvastatin Calcium (Atorvastatin 20 Mg Tab) 20 mg PO QHS [facility] Last Admin: 05/04/21 21:16 Dose: 20 mg Documented by: Budesonide (Budesonide 0.5 Mg/2 Ml Nebu) 0.5 mg IH Q12HRT [facility] Last Admin: 05/02/21 13:42 Dose: 0.5 mg Documented by: Hydroxyzine Pamoate (Hydroxyzine Pamoate 50 Mg Cap) 50 mg PO Q6H PRN PRN Reason: Anxiety Last Admin: 05/04/21 10:32 Dose: 50 mg Documented by: Insulin Human Lispro (Insulin Lispro 100 Unit/Ml) 0 unit SUB-Q [facility]; Protocol Last Admin: 05/05/21 07:55 Dose: Not Given Documented by: Lorazepam (Lorazepam 2 Mg/Ml Vial) 2 mg IV Q4H PRN PRN Reason: Agitation Losartan Potassium (Losartan 50 Mg Tab) 50 mg PO DAILY [facility] Last Admin: 05/04/21 12:21 Dose: Not Given Documented by: Metformin HCl (Metformin 500 Mg Tab) 500 mg PO BIDDIAB [facility] Last Admin: 05/05/21 08:21 Dose: 500 mg Documented by: Olanzapine (Olanzapine 10 Mg Tab) 10 mg PO QDAY [facility] Oxycodone HCl (Oxycodone 5 Mg Tab) 5 mg PO Q6H PRN PRN Reason: Pain, Moderate (4-6) Last Admin: 05/05/21 04:39 Dose: 5 mg Documented by: Oxycodone/Acetaminophen (Oxycodone /Acetaminophen 5-325mg Tab) 1 tab PO Q6H PRN PRN Reason: Pain, Moderate (4-6) Last Admin: 05/05/21 04:39 Dose: 1 tab Documented by: Pantoprazole Sodium (Pantoprazole 40 Mg Tab) 40 mg PO QDAC [facility] Last Admin: 05/05/21 08:21 Dose: 40 mg Documented by: Spironolactone (Spironolactone 25 Mg Tab) 25 mg PO BID [facility] Last Admin: 05/04/21 21:16 Dose: 25 mg Documented by: Tramadol HCl (Tramadol 50 Mg Tab) 50 mg PO BID PRN PRN Reason: Pain, Moderate (4-6) Trazodone HCl (Trazodone 50 Mg Tab) 50 mg PO QHS [facility] Last Admin: 05/04/21 21:15 Dose: 50 mg Documented by: Venlafaxine HCl (Venlafaxine Xr 75 Mg Cap) 150 mg PO QDAY [facility] Last Admin: 05/04/21 09:40 Dose: 150 mg Documented by: Results - Results Labs/Vitals: Laboratory Last Values WBC 13.0 K/mm3 (4.5-11.0) H 05/02/21 10:54 RBC 4.44 M/mm3 (3.65-5.03) 05/02/21 10:54 Hgb 12.8 gm/dl (11.8-15.2) 05/02/21 10:54 Hct 38.3 % (35.5-45.6) 05/02/21 10:54 MCV 86 fl (84-94) 05/02/21 10:54 MCH 29 pg (28-32) 05/02/21 10:54 MCHC 34 % (32-34) 05/02/21 10:54 RDW 15.9 % (13.2-15.2) H 05/02/21 10:54 Plt Count 251 K/mm3 (140-440) 05/02/21 10:54 Lymph % (Auto) 14.2 % (13.4-35.0) 05/02/21 10:54 Lewis % (Auto) 8.9 % (0.0-7.3) H 05/02/21 10:54 Eos % (Auto) 0.0 % (0.0-4.3) 05/02/21 10:54 Baso % (Auto) 0.0 % (0.0-1.8) 05/02/21 10:54 Lymph # (Auto) 1.9 K/mm3 (1.2-5.4) 05/02/21 10:54 Lewis # (Auto) 1.2 K/mm3 (0.0-0.8) H 05/02/21 10:54 Eos # (Auto) 0.0 K/mm3 (0.0-0.4) 05/02/21 10:54 Baso # (Auto) 0.0 K/mm3 (0.0-0.1) 05/02/21 10:54 Seg Neutrophils % 76.9 % (40.0-70.0) H 05/02/21 10:54 Seg Neutrophils # 10.0 K/mm3 (1.8-7.7) H 05/02/21 10:54 Sodium 137 mmol/L (137-145) 05/02/21 10:54 Potassium 4.7 mmol/L (3.6-5.0) 05/02/21 10:54 Chloride 103.0 mmol/L (98-107) 05/02/21 10:54 Carbon Dioxide 20 mmol/L (22-30) L 05/02/21 10:54 Anion Gap 19 mmol/L 05/02/21 10:54 BUN 9 mg/dL (9-20) 05/02/21 10:54 Creatinine 0.9 mg/dL (0.8-1.3) 05/02/21 10:54 Estimated GFR > 60 ml/min 05/02/21 10:54 BUN/Creatinine Ratio 10 % 05/02/21 10:54 Glucose 321 mg/dL (75-100) H 05/02/21 10:54 POC Glucose 99 mg/dL (70-105) 05/05/21 06:24 Hemoglobin A1c 6.8 % (4-6) H 05/02/21 10:54 Calcium 10.0 mg/dL (8.4-10.2) 05/02/21 10:54 Total Bilirubin 0.20 mg/dL (0.1-1.2) 05/02/21 10:54 AST 13 units/L (5-40) 05/02/21 10:54 ALT 21 units/L (7-56) 05/02/21 10:54 Alkaline Phosphatase 61 units/L (35-129) 05/02/21 10:54 Total Protein 6.6 g/dL (6.3-8.2) 05/02/21 10:54 Albumin 3.9 g/dL (3.9-5) 05/02/21 10:54 Albumin/Globulin Ratio 1.4 % 05/02/21 10:54 Triglycerides 105 mg/dL (2-149) 05/02/21 10:54 Cholesterol 259 mg/dL (50-199) H 05/02/21 10:54 LDL Cholesterol Direct 197 mg/dL (50-130) H 05/02/21 10:54 HDL Cholesterol 40 mg/dL (40-59) 05/02/21 10:54 Cholesterol/HDL Ratio 6.47 % 05/02/21 10:54 TSH 0.246 mlU/mL (0.270-4.200) L 05/02/21 10:54 Thyroxine (T4) 5.6 ug/dL (4.0-12.0) 05/03/21 14:36 Hepatitis A IgM Ab Non-reactive (NonReactive) 05/02/21 10:54 Hep Bs Antigen Nonreactive (Negative) 05/02/21 10:54 Hep B Core IgM Ab Non-reactive (NonReactive) 05/02/21 10:54 Hepatitis C Antibody Non-reactive (NonReactive) 05/02/21 10:54 Last Vital Signs Temp 98.0 F 05/04/21 23:51 Pulse 63 05/04/21 23:51 Resp 18 05/05/21 04:39 BP 108/53 05/04/21 23:51 Pulse Ox 97 05/04/21 23:51
[2021-05-05] MEDS: ARFORMOTEROL 15 MCG/2 ML NEBU IH SCH ×2 (08:51→15:47)
[2021-05-05] MEDS: BUDESONIDE 0.5 MG/2 ML NEBU IH SCH ×2 (08:52→15:48)
[2021-05-05] MEDS: VENLAFAXINE XR 75 MG CAP PO SCH (09:14)
[2021-05-05] MEDS: BICTEGRAV/EMTRICIT/TENOFOV ALA (NF) TAB PO SCH (09:18)
[2021-05-05] MEDS: LOSARTAN 50 MG TAB PO SCH (09:24)
[2021-05-05] MEDS: SPIRONOLACTONE 25 MG TAB PO SCH ×2 (09:24→21:06)
[2021-05-05] MEDS: traZODone 50 MG TAB PO SCH (21:06)
[2021-05-06] MEDS: oxyCODONE /ACETAMINOPHEN 5-325MG TAB PO PRN ×3 (06:47→20:52)
[2021-05-06] MEDS: oxyCODONE 5 MG TAB PO PRN ×3 (06:48→20:52)
[2021-05-06] MEDS: INSULIN LISPRO 100 UNIT/ML SUB-Q SCH ×4 (07:46→21:44)
[2021-05-06] MEDS: metFORMIN 500 MG TAB PO SCH ×2 (07:54→16:25)
[2021-05-06] MEDS: PANTOPRAZOLE 40 MG TAB PO SCH (07:54)
[2021-05-06] MEDS: ARFORMOTEROL 15 MCG/2 ML NEBU IH SCH (09:25)
[2021-05-06] MEDS: BUDESONIDE 0.5 MG/2 ML NEBU IH SCH (09:25)
[2021-05-06] MEDS: BICTEGRAV/EMTRICIT/TENOFOV ALA (NF) TAB PO SCH (09:28)
[2021-05-06] MEDS: VENLAFAXINE XR 75 MG CAP PO SCH (09:29)
[2021-05-06] MEDS: SPIRONOLACTONE 25 MG TAB PO SCH ×2 (09:30→21:43)
[2021-05-06] MEDS: LOSARTAN 50 MG TAB PO SCH (09:30)
--- NOTE | 2021-05-06 10:02 | Progress Note ---
Subjective Date of service: 05/06/21 Principal diagnosis: Schizophrenia Subjective Comment: The patient was seen today. He says he feels stressed. He appears anxious. He is upset that he did not get double portion of food. He says he's frustrated about everything. The patient says he still feels suicidal at times. He denies hallucinations. He is asking if he was getting placed after discharged. REVIEW OF SYSTEMS Constitutional: Negative for weight loss ENT: Negative for stridor Respiratory: Negative for cough or hemoptysis All other systems reviewed and are negative MENTAL STATUS EXAMINATION General Appearance and Behavior: Age appropriate, good hygiene, wearing appropriate clothes. Cooperation: Cooperative, calm Psychomotor Behavior: Psychomotor normal Mood: depressed and stressed Affect and affective range: congruent with stated mood, tearful Thought Process: labile Thought Content: Suicidal Speech: Normal volume, Regular rate and rhythm, Suicidal Ideation: Yes Homicidal Ideation: Denies Hallucinations: Yes, Auditory Delusions: None Impulse Control: Questionable Insight and Judgment: Limited insight, fair judgment Memory: unimpaired Attention: Distractible Orientation: alert and oriented Assessment and Plan (1) Paranoid Schizophrenia disorder Treatment Plan Patient admitted for inpatient psychiatric evaluation, medication adjustment and close monitoring The patient's behavior, mood, sleep and appetite will be closely monitored. Patient enrolled in individual and group therapeutic sessions and encouraged to attend. Patient provided with a safe and structured environment. Patient's physical health needs will be addressed by the Hospitalist. Hospitalist Consulted Labs including CBC, CMP, Lipid profile and Hemoglobin A1C levels ordered for baseline reference Social Assessment will be completed and the Winemaker will work with patient and family to ensure a suitable and safe disposition Medication adjustment will be made as clinically indicated Changed Vistaril to 50mg po BID scheduled Usual Wellness Christianity/Preservation: - Start Trazodone 50 mg po QHS & 50 mg po QHS PRN between 10 PM & 2 AM for insomnia - Start Melatonin 5 mg po QHS to promote circadian rhythm The patient agreed on the treatment plan, understood the risk, benefit, alternative treatment, potential consequence of no treatment, and gave informed consent. Estimated days: 5 Post hospital care: primary care provider, psychiatric provider Case staffed with Dr. Kelley Medications and Allergies Allergies Allergy/AdvReac Type Severity Reaction Status Date / Time codeine AdvReac Unknown Verified 04/09/16 10:34 Home Medications Medication Instructions Recorded Confirmed Last Taken Type Aldactone 25 mg PO BID 05/02/21 05/02/21 Unknown History Bictegrav/Emtricit/Tenofov Ala 1 tab PO DAILY 05/02/21 05/02/21 Unknown History [Biktarvy 50-200-25 mg (Nf)] Losartan [Cozaar] 50 mg PO DAILY 05/02/21 05/02/21 Unknown History Oxycodone HCl/Acetaminophen 1 each PO Q6HR PRN 05/02/21 05/02/21 05/01/21 23:17 History [Percocet 10/325 mg] Pantoprazole [Protonix TAB] 40 mg PO QDAY 05/02/21 05/02/21 Unknown History Venlafaxine HCl [Effexor Xr] 150 mg PO DAILY 05/02/21 05/02/21 Unknown History metFORMIN [Glucophage] 500 mg PO BID 05/02/21 05/02/21 Unknown History Active Meds: Active Medications Arformoterol Tartrate (Arformoterol 15 Mcg/2 Ml Nebu) 15 mcg IH Q12HRT [facility] Last Admin: 05/06/21 09:25 Dose: Not Given Documented by: Atorvastatin Calcium (Atorvastatin 20 Mg Tab) 20 mg PO QHS [facility] Last Admin: 05/05/21 21:06 Dose: 20 mg Documented by: Budesonide (Budesonide 0.5 Mg/2 Ml Nebu) 0.5 mg IH Q12HRT [facility] Last Admin: 05/06/21 09:25 Dose: Not Given Documented by: Hydroxyzine Pamoate (Hydroxyzine Pamoate 50 Mg Cap) 50 mg PO Q6H PRN PRN Reason: Anxiety Last Admin: 05/05/21 21:06 Dose: 50 mg Documented by: Insulin Human Lispro (Insulin Lispro 100 Unit/Ml) 0 unit SUB-Q [facility]; Protocol Last Admin: 05/06/21 07:46 Dose: Not Given Documented by: Lorazepam (Lorazepam 2 Mg/Ml Vial) 2 mg IV Q4H PRN PRN Reason: Agitation Losartan Potassium (Losartan 50 Mg Tab) 50 mg PO DAILY [facility] Last Admin: 05/06/21 09:30 Dose: 50 mg Documented by: Metformin HCl (Metformin 500 Mg Tab) 500 mg PO BIDDIAB [facility] Last Admin: 05/06/21 07:54 Dose: 500 mg Documented by: Olanzapine (Olanzapine 10 Mg Tab) 10 mg PO QDAY [facility] Last Admin: 05/06/21 09:30 Dose: 10 mg Documented by: Oxycodone HCl (Oxycodone 5 Mg Tab) 5 mg PO Q6H PRN PRN Reason: Pain, Moderate (4-6) Last Admin: 05/06/21 06:48 Dose: 5 mg Documented by: Oxycodone/Acetaminophen (Oxycodone /Acetaminophen 5-325mg Tab) 1 tab PO Q6H PRN PRN Reason: Pain, Moderate (4-6) Last Admin: 05/06/21 06:47 Dose: 1 tab Documented by: Pantoprazole Sodium (Pantoprazole 40 Mg Tab) 40 mg PO QDAC [facility] Last Admin: 05/06/21 07:54 Dose: 40 mg Documented by: Spironolactone (Spironolactone 25 Mg Tab) 25 mg PO BID [facility] Last Admin: 05/06/21 09:30 Dose: 25 mg Documented by: Tramadol HCl (Tramadol 50 Mg Tab) 50 mg PO BID PRN PRN Reason: Pain, Moderate (4-6) Trazodone HCl (Trazodone 50 Mg Tab) 50 mg PO QHS [facility] Last Admin: 05/05/21 21:06 Dose: 50 mg Documented by: Venlafaxine HCl (Venlafaxine Xr 75 Mg Cap) 150 mg PO QDAY [facility] Last Admin: 05/06/21 09:29 Dose: 150 mg Documented by: Results - Results Labs/Vitals: Laboratory Last Values WBC 13.0 K/mm3 (4.5-11.0) H 05/02/21 10:54 RBC 4.44 M/mm3 (3.65-5.03) 05/02/21 10:54 Hgb 12.8 gm/dl (11.8-15.2) 05/02/21 10:54 Hct 38.3 % (35.5-45.6) 05/02/21 10:54 MCV 86 fl (84-94) 05/02/21 10:54 MCH 29 pg (28-32) 05/02/21 10:54 MCHC 34 % (32-34) 05/02/21 10:54 RDW 15.9 % (13.2-15.2) H 05/02/21 10:54 Plt Count 251 K/mm3 (140-440) 05/02/21 10:54 Lymph % (Auto) 14.2 % (13.4-35.0) 05/02/21 10:54 Mason % (Auto) 8.9 % (0.0-7.3) H 05/02/21 10:54 Eos % (Auto) 0.0 % (0.0-4.3) 05/02/21 10:54 Baso % (Auto) 0.0 % (0.0-1.8) 05/02/21 10:54 Lymph # (Auto) 1.9 K/mm3 (1.2-5.4) 05/02/21 10:54 Mason # (Auto) 1.2 K/mm3 (0.0-0.8) H 05/02/21 10:54 Eos # (Auto) 0.0 K/mm3 (0.0-0.4) 05/02/21 10:54 Baso # (Auto) 0.0 K/mm3 (0.0-0.1) 05/02/21 10:54 Seg Neutrophils % 76.9 % (40.0-70.0) H 05/02/21 10:54 Seg Neutrophils # 10.0 K/mm3 (1.8-7.7) H 05/02/21 10:54 Sodium 137 mmol/L (137-145) 05/02/21 10:54 Potassium 4.7 mmol/L (3.6-5.0) 05/02/21 10:54 Chloride 103.0 mmol/L (98-107) 05/02/21 10:54 Carbon Dioxide 20 mmol/L (22-30) L 05/02/21 10:54 Anion Gap 19 mmol/L 05/02/21 10:54 BUN 9 mg/dL (9-20) 05/02/21 10:54 Creatinine 0.9 mg/dL (0.8-1.3) 05/02/21 10:54 Estimated GFR > 60 ml/min 05/02/21 10:54 BUN/Creatinine Ratio 10 % 05/02/21 10:54 Glucose 321 mg/dL (75-100) H 05/02/21 10:54 POC Glucose 99 mg/dL (70-105) 05/06/21 06:23 Hemoglobin A1c 6.8 % (4-6) H 05/02/21 10:54 Calcium 10.0 mg/dL (8.4-10.2) 05/02/21 10:54 Total Bilirubin 0.20 mg/dL (0.1-1.2) 05/02/21 10:54 AST 13 units/L (5-40) 05/02/21 10:54 ALT 21 units/L (7-56) 05/02/21 10:54 Alkaline Phosphatase 61 units/L (35-129) 05/02/21 10:54 Total Protein 6.6 g/dL (6.3-8.2) 05/02/21 10:54 Albumin 3.9 g/dL (3.9-5) 05/02/21 10:54 Albumin/Globulin Ratio 1.4 % 05/02/21 10:54 Triglycerides 105 mg/dL (2-149) 05/02/21 10:54 Cholesterol 259 mg/dL (50-199) H 05/02/21 10:54 LDL Cholesterol Direct 197 mg/dL (50-130) H 05/02/21 10:54 HDL Cholesterol 40 mg/dL (40-59) 05/02/21 10:54 Cholesterol/HDL Ratio 6.47 % 05/02/21 10:54 TSH 0.246 mlU/mL (0.270-4.200) L 05/02/21 10:54 Thyroxine (T4) 5.6 ug/dL (4.0-12.0) 05/03/21 14:36 Hepatitis A IgM Ab Non-reactive (NonReactive) 05/02/21 10:54 Hep Bs Antigen Nonreactive (Negative) 05/02/21 10:54 Hep B Core IgM Ab Non-reactive (NonReactive) 05/02/21 10:54 Hepatitis C Antibody Non-reactive (NonReactive) 05/02/21 10:54 Last Vital Signs Temp 98.6 F 05/06/21 07:32 Pulse 88 05/06/21 09:30 Resp 18 05/06/21 07:32 BP 120/72 05/06/21 09:30 Pulse Ox 91 05/06/21 07:32
[2021-05-06] MEDS: traZODone 50 MG TAB PO SCH (21:43)
[2021-05-07] MEDS: oxyCODONE 5 MG TAB PO PRN ×3 (04:58→18:11)
[2021-05-07] MEDS: oxyCODONE /ACETAMINOPHEN 5-325MG TAB PO PRN ×3 (04:59→18:10)
--- NOTE | 2021-05-07 09:31 | Progress Note ---
Subjective Date of service: 05/07/21 Principal diagnosis: Schizophrenia Subjective Comment: The patient was seen today. He says he is stressed because he has a lot of medical problems and hasn't been sleeping. He is asking me if the SW got him in a program. He says he feels suicidal on and off. The patient then says he's worried about being placed in a facility. REVIEW OF SYSTEMS Constitutional: Negative for weight loss ENT: Negative for stridor Respiratory: Negative for cough or hemoptysis All other systems reviewed and are negative MENTAL STATUS EXAMINATION General Appearance and Behavior: Age appropriate, good hygiene, wearing jerald ropriate clothes. Cooperation: Cooperative, calm Psychomotor Behavior: Psychomotor normal Mood: depressed and stressed Affect and affective range: congruent with stated mood, tearful Thought Process: labile Thought Content: Suicidal Speech: Normal volume, Regular rate and rhythm, Suicidal Ideation: Yes Homicidal Ideation: Denies Hallucinations: Yes, Auditory Delusions: None Impulse Control: Questionable Insight and Judgment: Limited insight, fair judgment Memory: unimpaired Attention: Distractible Orientation: alert and oriented Assessment and Plan (1) Paranoid Schizophrenia disorder Treatment Plan Patient admitted for inpatient psychiatric evaluation, medication adjustment and close monitoring The patient's behavior, mood, sleep and appetite will be closely monitored. Patient enrolled in individual and group therapeutic sessions and encouraged to attend. Patient provided with a safe and structured environment. Patient's physical health needs will be addressed by the Hospitalist. Hospitalist Consulted Labs including CBC, CMP, Lipid profile and Hemoglobin A1C levels ordered for baseline reference Social Assessment will be completed and the Machine Set Up Technician will work with patient and family to ensure a suitable and safe disposition Medication adjustment will be made as clinically indicated Trazodone 75mg po qhs Usual Wellness [facility]ist/Preservation: - Start Trazodone 50 mg po QHS & 50 mg po QHS PRN between 10 PM & 2 AM for insomnia - Start Melatonin 5 mg po QHS to promote circadian rhythm The patient agreed on the treatment plan, understood the risk, benefit, alternative treatment, potential consequence of no treatment, and gave informed consent. Estimated days: 5 Post hospital care: primary care provider, psychiatric provider Case staffed with Dr. Kelley Medications and Allergies Allergies Allergy/AdvReac Type Severity Reaction Status Date / Time codeine AdvReac Unknown Verified 04/09/16 10:34 Home Medications Medication Instructions Recorded Confirmed Last Taken Type Aldactone 25 mg PO BID 05/02/21 05/02/21 Unknown History Bictegrav/Emtricit/Tenofov Ala 1 tab PO DAILY 05/02/21 05/02/21 Unknown History [Biktarvy 50-200-25 mg (Nf)] Losartan [Cozaar] 50 mg PO DAILY 05/02/21 05/02/21 Unknown History Oxycodone HCl/Acetaminophen 1 each PO Q6HR PRN 05/02/21 05/02/21 05/01/21 23:17 History [Percocet 10/325 mg] Pantoprazole [Protonix TAB] 40 mg PO QDAY 05/02/21 05/02/21 Unknown History Venlafaxine HCl [Effexor Xr] 150 mg PO DAILY 05/02/21 05/02/21 Unknown History metFORMIN [Glucophage] 500 mg PO BID 05/02/21 05/02/21 Unknown History Active Meds: Active Medications Arformoterol Tartrate (Arformoterol 15 Mcg/2 Ml Nebu) 15 mcg IH Q12HRT [facility] Last Admin: 05/06/21 09:25 Dose: Not Given Documented by: Atorvastatin Calcium (Atorvastatin 20 Mg Tab) 20 mg PO QHS [facility] Last Admin: 05/06/21 21:43 Dose: 20 mg Documented by: Budesonide (Budesonide 0.5 Mg/2 Ml Nebu) 0.5 mg IH Q12HRT [facility] Last Admin: 05/06/21 09:25 Dose: Not Given Documented by: Hydroxyzine Pamoate (Hydroxyzine Pamoate 50 Mg Cap) 50 mg PO BID [facility] Last Admin: 05/06/21 21:43 Dose: 50 mg Documented by: Insulin Human Lispro (Insulin Lispro 100 Unit/Ml) 0 unit SUB-Q ACHS [facility]; Protocol Last Admin: 05/06/21 21:44 Dose: Not Given Documented by: Lorazepam (Lorazepam 2 Mg/Ml Vial) 2 mg IV Q4H PRN PRN Reason: Agitation Losartan Potassium (Losartan 50 Mg Tab) 50 mg PO DAILY [facility] Last Admin: 05/06/21 09:30 Dose: 50 mg Documented by: Metformin HCl (Metformin 500 Mg Tab) 500 mg PO BIDDIAB [facility] Last Admin: 05/06/21 16:25 Dose: 500 mg Documented by: Olanzapine (Olanzapine 10 Mg Tab) 10 mg PO QDAY [facility] Last Admin: 05/06/21 09:30 Dose: 10 mg Documented by: Oxycodone HCl (Oxycodone 5 Mg Tab) 5 mg PO Q6H PRN PRN Reason: Pain, Moderate (4-6) Last Admin: 05/07/21 04:58 Dose: 5 mg Documented by: Oxycodone/Acetaminophen (Oxycodone /Acetaminophen 5-325mg Tab) 1 tab PO Q6H PRN PRN Reason: Pain, Moderate (4-6) Last Admin: 05/07/21 04:59 Dose: 1 tab Documented by: Pantoprazole Sodium (Pantoprazole 40 Mg Tab) 40 mg PO QDAC [facility] Last Admin: 05/06/21 07:54 Dose: 40 mg Documented by: Spironolactone (Spironolactone 25 Mg Tab) 25 mg PO BID [facility] Last Admin: 05/06/21 21:43 Dose: 25 mg Documented by: Tramadol HCl (Tramadol 50 Mg Tab) 50 mg PO BID PRN PRN Reason: Pain, Moderate (4-6) Trazodone HCl (Trazodone 50 Mg Tab) 50 mg PO QHS [facility] Last Admin: 05/06/21 21:43 Dose: 50 mg Documented by: Venlafaxine HCl (Venlafaxine Xr 75 Mg Cap) 150 mg PO QDAY [facility] Last Admin: 05/06/21 09:29 Dose: 150 mg Documented by: Results - Results Labs/Vitals: Laboratory Last Values WBC 13.0 K/mm3 (4.5-11.0) H 05/02/21 10:54 RBC 4.44 M/mm3 (3.65-5.03) 05/02/21 10:54 Hgb 12.8 gm/dl (11.8-15.2) 05/02/21 10:54 Hct 38.3 % (35.5-45.6) 05/02/21 10:54 MCV 86 fl (84-94) 05/02/21 10:54 MCH 29 pg (28-32) 05/02/21 10:54 MCHC 34 % (32-34) 05/02/21 10:54 RDW 15.9 % (13.2-15.2) H 05/02/21 10:54 Plt Count 251 K/mm3 (140-440) 05/02/21 10:54 Lymph % (Auto) 14.2 % (13.4-35.0) 05/02/21 10:54 [place] % (Auto) 8.9 % (0.0-7.3) H 05/02/21 10:54 Eos % (Auto) 0.0 % (0.0-4.3) 05/02/21 10:54 Baso % (Auto) 0.0 % (0.0-1.8) 05/02/21 10:54 Lymph # (Auto) 1.9 K/mm3 (1.2-5.4) 05/02/21 10:54 [place] # (Auto) 1.2 K/mm3 (0.0-0.8) H 05/02/21 10:54 Eos # (Auto) 0.0 K/mm3 (0.0-0.4) 05/02/21 10:54 Baso # (Auto) 0.0 K/mm3 (0.0-0.1) 05/02/21 10:54 Seg Neutrophils % 76.9 % (40.0-70.0) H 05/02/21 10:54 Seg Neutrophils # 10.0 K/mm3 (1.8-7.7) H 05/02/21 10:54 Sodium 137 mmol/L (137-145) 05/02/21 10:54 Potassium 4.7 mmol/L (3.6-5.0) 05/02/21 10:54 Chloride 103.0 mmol/L (98-107) 05/02/21 10:54 Carbon Dioxide 20 mmol/L (22-30) L 05/02/21 10:54 Anion Gap 19 mmol/L 05/02/21 10:54 BUN 9 mg/dL (9-20) 05/02/21 10:54 Creatinine 0.9 mg/dL (0.8-1.3) 05/02/21 10:54 Estimated GFR > 60 ml/min 05/02/21 10:54 BUN/Creatinine Ratio 10 % 05/02/21 10:54 Glucose 321 mg/dL (75-100) H 05/02/21 10:54 POC Glucose 101 mg/dL (70-105) 05/07/21 06:22 Hemoglobin A1c 6.8 % (4-6) H 05/02/21 10:54 Calcium 10.0 mg/dL (8.4-10.2) 05/02/21 10:54 Total Bilirubin 0.20 mg/dL (0.1-1.2) 05/02/21 10:54 AST 13 units/L (5-40) 05/02/21 10:54 ALT 21 units/L (7-56) 05/02/21 10:54 Alkaline Phosphatase 61 units/L (35-129) 05/02/21 10:54 Total Protein 6.6 g/dL (6.3-8.2) 05/02/21 10:54 Albumin 3.9 g/dL (3.9-5) 05/02/21 10:54 Albumin/Globulin Ratio 1.4 % 05/02/21 10:54 Triglycerides 105 mg/dL (2-149) 05/02/21 10:54 Cholesterol 259 mg/dL (50-199) H 05/02/21 10:54 LDL Cholesterol Direct 197 mg/dL (50-130) H 05/02/21 10:54 HDL Cholesterol 40 mg/dL (40-59) 05/02/21 10:54 Cholesterol/HDL Ratio 6.47 % 05/02/21 10:54 TSH 0.246 mlU/mL (0.270-4.200) L 05/02/21 10:54 Thyroxine (T4) 5.6 ug/dL (4.0-12.0) 05/03/21 14:36 Hepatitis A IgM Ab Non-reactive (NonReactive) 05/02/21 10:54 Hep Bs Antigen Nonreactive (Negative) 05/02/21 10:54 Hep B Core IgM Ab Non-reactive (NonReactive) 05/02/21 10:54 Hepatitis C Antibody Non-reactive (NonReactive) 05/02/21 10:54 Last Vital Signs Temp 98.6 F 05/06/21 07:32 Pulse 65 05/06/21 21:43 Resp 18 05/07/21 04:58 BP 122/64 05/06/21 21:43 Pulse Ox 91 05/06/21 07:32
[2021-05-07] MEDS: INSULIN LISPRO 100 UNIT/ML SUB-Q SCH ×4 (10:26→22:36)
[2021-05-07] MEDS: BICTEGRAV/EMTRICIT/TENOFOV ALA (NF) TAB PO SCH (11:39)
[2021-05-07] MEDS: VENLAFAXINE XR 75 MG CAP PO SCH (11:40)
[2021-05-07] MEDS: PANTOPRAZOLE 40 MG TAB PO SCH (11:42)
[2021-05-07] MEDS: metFORMIN 500 MG TAB PO SCH ×2 (11:43→17:11)
[2021-05-07] MEDS: SPIRONOLACTONE 25 MG TAB PO SCH ×2 (13:04→22:12)
[2021-05-07] MEDS: LOSARTAN 50 MG TAB PO SCH (13:04)
[2021-05-07] MEDS ORDERED: traZODone 50 MG TAB PO SCH (22:00)
[2021-05-08] MEDS: oxyCODONE /ACETAMINOPHEN 5-325MG TAB PO PRN ×2 (02:13→10:33)
[2021-05-08] MEDS: oxyCODONE 5 MG TAB PO PRN ×2 (02:15→10:33)
--- NOTE | 2021-05-08 09:05 | Discharge Summary ---
Providers - Providers Date of Admission: 05/02/21 08:00 Date of discharge: 05/08/21 Attending physician: BENJI MIXON MD 05/02/21 07:32 Consult to Physician [CONS] Routine Comment: Consulting Provider: SAMEER LUNDBERG Physician Instructions: Reason For Exam: manage existing medical issues Primary care physician: KELTON BOYD Hospitalization Reason for admission: depression, SI Admitting Diagnosis: F20.0 - PARANOID SCHIZOPHRENIA Condition: Stable Hospital course: The patient was provided inpatient psychiatric treatment with safe and supportive care, medication adjustment, adverse effect monitoring, medical evaluations, medical treatments, assessment and psycho-education. The patient's mood, cognition, behavior, moral support are improved and stabilized. St the time of discharge, the patient had no endangering behavior and no debilitating adverse effects. The patient agreed on potential consequences of no treatment and gave informed consent. 05/02 Jcarlos Mohr is a 50 year old male with a history of depression and paranoid schizophrenia who was admitted on 1012 from [place], [place] for suicidal ideation and attempt via overdosing on pills. The patient was seen resting in bed, he was calm and cooperative. The patient reports that he stays depressed due to his comorbid health issues. The patient reports having intermittent issues with panic attacks and claustrophobic. He endorses auditory/visual hallucinations stating " voices saying give up because you're not going to get better, do what you have to do." The patient also states that " when my HIV kick in, I start itching I see bees and I loose my mind." The patient denies having any current suicidal /homicidal ideation. 05/03 The patient is in the hallway, he presents with anxiety, reports as 8/10. The The patient is stumbling and holding the rails while ambulating. He is complaining about his breakfast. The patient reports that " my medical conditions is killing me; the virus causes the itching. He continues to endorse suicidal ideation without a plan and AV he states " is caused by the virus." Start Zyprexa 5mg po daily 05/04 The patient was seen today. His affect is flat. He is slightly tearful. He says he feels stressed and very depressed. The patient endorses suicidal thoughts.. He denies a plan, but states voices are telling him "do what you gotta do to end it. You're not going to get better." 05/05 The patient was seen today. He says he feels stressed. The patient says his "mind is messing with me." He endorses SI. He says most of it is due to elena ng sick and in pain. He says his health is failing. The patient says he hears voices telling him to give up. 05/06 The patient was seen today. He says he feels stressed. He appears anxious. He is upset that he did not get double portion of food. He says he's frustrated about everything. The patient says he still feels suicidal at times. He denies hallucinations. He is asking if he was getting placed after discharged. 05/07 The patient was seen today. He says he is stressed because he has a lot of medical problems and hasn't been sleeping. He is asking me if the SW got him in a program. He says he feels suicidal on and off. The patient then says he's worried about being placed in a facility. 05/08 The patient was seen today. He is lying in bed. He says he's not doing too goo due to chronic back pain. He asks me if the SW was able to get him into the place he wanted. I told him I believe she had worked it out. The patient says that made his morning. He then says he feeling much better. He says he still hears voices at times but denies at present. He says they are no longer telling him anything harmful. He says just mumbling that he heard last nigh. He denies SI/HI. Disposition: 01 HOME / SELF CARE / HOMELESS Time spent for discharge: 35 Allergies/Adverse Reactions: Allergies codeine Adverse Reaction (Verified 04/09/16 10:34) Unknown Vital Signs: Last Vital Signs Temp 98.4 F 05/07/21 19:51 Pulse 60 05/07/21 19:51 Resp 20 05/08/21 02:15 BP 119/63 05/07/21 19:51 Pulse Ox 95 05/07/21 19:51 Last Lab: Laboratory Last Values WBC 13.0 K/mm3 (4.5-11.0) H 05/02/21 10:54 RBC 4.44 M/mm3 (3.65-5.03) 05/02/21 10:54 Hgb 12.8 gm/dl (11.8-15.2) 05/02/21 10:54 Hct 38.3 % (35.5-45.6) 05/02/21 10:54 MCV 86 fl (84-94) 05/02/21 10:54 MCH 29 pg (28-32) 05/02/21 10:54 MCHC 34 % (32-34) 05/02/21 10:54 RDW 15.9 % (13.2-15.2) H 05/02/21 10:54 Plt Count 251 K/mm3 (140-440) 05/02/21 10:54 Lymph % (Auto) 14.2 % (13.4-35.0) 05/02/21 10:54 [place] % (Auto) 8.9 % (0.0-7.3) H 05/02/21 10:54 Eos % (Auto) 0.0 % (0.0-4.3) 05/02/21 10:54 Baso % (Auto) 0.0 % (0.0-1.8) 05/02/21 10:54 Lymph # (Auto) 1.9 K/mm3 (1.2-5.4) 05/02/21 10:54 [place] # (Auto) 1.2 K/mm3 (0.0-0.8) H 05/02/21 10:54 Eos # (Auto) 0.0 K/mm3 (0.0-0.4) 05/02/21 10:54 Baso # (Auto) 0.0 K/mm3 (0.0-0.1) 05/02/21 10:54 Seg Neutrophils % 76.9 % (40.0-70.0) H 05/02/21 10:54 Seg Neutrophils # 10.0 K/mm3 (1.8-7.7) H 05/02/21 10:54 Sodium 137 mmol/L (137-145) 05/02/21 10:54 Potassium 4.7 mmol/L (3.6-5.0) 05/02/21 10:54 Chloride 103.0 mmol/L (98-107) 05/02/21 10:54 Carbon Dioxide 20 mmol/L (22-30) L 05/02/21 10:54 Anion Gap 19 mmol/L 05/02/21 10:54 BUN 9 mg/dL (9-20) 05/02/21 10:54 Creatinine 0.9 mg/dL (0.8-1.3) 05/02/21 10:54 Estimated GFR > 60 ml/min 05/02/21 10:54 BUN/Creatinine Ratio 10 % 05/02/21 10:54 Glucose 321 mg/dL (75-100) H 05/02/21 10:54 POC Glucose 110 mg/dL (70-105) H 05/08/21 07:09 Hemoglobin A1c 6.8 % (4-6) H 05/02/21 10:54 Calcium 10.0 mg/dL (8.4-10.2) 05/02/21 10:54 Total Bilirubin 0.20 mg/dL (0.1-1.2) 05/02/21 10:54 AST 13 units/L (5-40) 05/02/21 10:54 ALT 21 units/L (7-56) 05/02/21 10:54 Alkaline Phosphatase 61 units/L (35-129) 05/02/21 10:54 Total Protein 6.6 g/dL (6.3-8.2) 05/02/21 10:54 Albumin 3.9 g/dL (3.9-5) 05/02/21 10:54 Albumin/Globulin Ratio 1.4 % 05/02/21 10:54 Triglycerides 105 mg/dL (2-149) 05/02/21 10:54 Cholesterol 259 mg/dL (50-199) H 05/02/21 10:54 LDL Cholesterol Direct 197 mg/dL (50-130) H 05/02/21 10:54 HDL Cholesterol 40 mg/dL (40-59) 05/02/21 10:54 Cholesterol/HDL Ratio 6.47 % 05/02/21 10:54 TSH 0.246 mlU/mL (0.270-4.200) L 05/02/21 10:54 Thyroxine (T4) 5.6 ug/dL (4.0-12.0) 05/03/21 14:36 Hepatitis A IgM Ab Non-reactive (NonReactive) 05/02/21 10:54 Hep Bs Antigen Nonreactive (Negative) 05/02/21 10:54 Hep B Core IgM Ab Non-reactive (NonReactive) 05/02/21 10:54 Hepatitis C Antibody Non-reactive (NonReactive) 05/02/21 10:54 Core Measure Documentation - Palliative Care Palliative Care/ Comfort Measures: Not Applicable - Core Measures Any of the following diagnoses?: none Exam - Constitutional Vitals: Temp Pulse Resp BP Pulse Ox 98.4 F 60 20 119/63 95 05/07/21 19:51 05/07/21 19:51 05/08/21 02:15 05/07/21 19:51 05/07/21 19:51 General appearance: Present: no acute distress - EENT Eyes: Present: PERRL, EOM intact ENT: hearing intact, clear oral mucosa - Neck Neck: Present: supple, normal ROM - Respiratory Respiratory effort: normal Plan Activity: advance as tolerated Weight Bearing Status: Weight Bear as Tolerated Care Plan Goals: Maintain good and stable mental health Plan of Treatment: The patient should be compliant with medications, not to use drugs, and not to drink alcohol. The patient understands that if suicidal ideas, homicidal ideas or any endangering feeling arise, the patient should seek assistance including, but not limited to crisis hotline, and emergency room. Assessment: Paranoid schizophrenia Follow up with: KELTON BOYD MD [Primary Care Provider] - 7 Days Prescriptions: traZODone [Desyrel] 75 mg PO QHS #45 tablet AtorvaSTATin [Lipitor] 20 mg PO QHS #30 tablet Venlafaxine HCl [Effexor Xr] 150 mg PO DAILY #30 hydrOXYzine PAMOATE [Vistaril] 50 mg PO BID PRN #60 capsule PRN Reason: Anxiety OLANzapine [Zyprexa] 10 mg PO QDAY #30 tablet
[2021-05-08 09:40] VITALS: BP 121/66
[2021-05-08] MEDS: BICTEGRAV/EMTRICIT/TENOFOV ALA (NF) TAB PO SCH (09:41)
[2021-05-08] MEDS: metFORMIN 500 MG TAB PO SCH (09:41)
[2021-05-08] MEDS: VENLAFAXINE XR 75 MG CAP PO SCH (09:41)
[2021-05-08] MEDS: SPIRONOLACTONE 25 MG TAB PO SCH (09:42)
[2021-05-08] MEDS: PANTOPRAZOLE 40 MG TAB PO SCH (09:42)
[2021-05-08] MEDS: LOSARTAN 50 MG TAB PO SCH (09:42)
[2021-05-08] MEDS: INSULIN LISPRO 100 UNIT/ML SUB-Q SCH ×2 (09:42→12:52)
== END 2021-05-08 14:35 | disposition home or self-care (01) | DRG 885 ==
LOC: UNDOADMIN 01:15 → 3A 01:15 → 5A 08:00
PROVIDERS: ADMIT Psychiatry & Neurology Psychiatry; ATTEND Psychiatry & Neurology Psychiatry
DX: F20.0 Paranoid schizophrenia (principal); B20 Human immunodeficiency virus [HIV] disease; K21.9 Gastro-esophageal reflux disease without esophagitis; J44.9 Chronic obstructive pulmonary disease, unspecified; G89.29 Other chronic pain; E11.9 Type 2 diabetes mellitus without complications; I11.0 Hypertensive heart disease with heart failure; I50.9 Heart failure, unspecified; K29.70 Gastritis, unspecified, without bleeding; F32.9 Major depressive disorder, single episode, unspecified; M54.5 Low back pain; Z88.5 Allergy status to narcotic agent
CPT/HCPCS: 36415; 80053; 80061; 80074; 82962; 83036; 84436; 84443; 85025; 94640; G0378; J1815; Q0177